=== PATIENT | female | born 1965 | race Caucasian/White ===

== ENCOUNTER 2017-03-23 11:19 | Emergency (ER) | payer MEDICAID ==
[~2017-03-23] VITALS: Ht 170.2 cm; Wt 70.4 kg
[~2017-03-23 11:19] MED LIST: LAMO25TA5 PO; METO10TA82 PO; OXYC-223 PO
[2017-03-23 11:20] VITALS: BP 123/83
[2017-03-23] MEDS ORDERED: KETOROLAC 30 MG/1 ML IM ONE (12:00)
[2017-03-23] MEDS ORDERED: KETOROLAC 30 MG/1 ML ONE (12:07)
== END 2017-03-23 13:08 | disposition home or self-care (01) ==
LOC: ED 11:48
DX: M25.561 Pain in right knee (principal)
CPT/HCPCS: 29505; 73564; 96372; 99284; J1885

== ENCOUNTER 2019-09-18 04:36 | Emergency (ER) | payer MEDICAID ==
[~2019-09-18] VITALS: Ht 170.2 cm; Wt 72.8 kg
[~2019-09-18 04:36] MED LIST changes: -OXYC-223 PO; +OXYC-306 PO
[2019-09-18 04:38] VITALS: BP 151/85
--- NOTE | 2019-09-18 04:54 | NUR ---
PT CHANGED INTO GOWN AND IN [facility] [place]. [facility] AT FOR PT HISTORY AND ASSESSMENT. PT EDUCATED ON ER PROCESS AND POC AND VERBALIZES UNDERSTANDING. CALL LIGHT IS WITHIN REACH AT THIS TIME. AWAITING ORDERS FROM ERP.
--- NOTE | 2019-09-18 06:58 | NUR ---
Patient given discharge instructions and they have confirmed that they understand the instructions. Patient ambulatory with steady gait.
== END 2019-09-18 07:00 | disposition home or self-care (01) ==
LOC: ED 05:48
DX: M79.652 Pain in left thigh (principal)
CPT/HCPCS: 99284

== ENCOUNTER 2020-02-26 17:19 | Emergency (ER) | payer OTHER, MEDICAID ==
[~2020-02-26] VITALS: Ht 170.2 cm; Wt 71.3 kg
[2020-02-26 17:22] VITALS: BP 152/82
--- NOTE | 2020-02-26 17:36 | NUR ---
PT STATES Hx HEP C WITH INTERFERON THERAPY, WAS TOLD SHE DIDN'T HAVE IT ANYMORE. ALSO ADMITS TO DAY TRADER SUBSTANCE SBUSE INCLUDING VICODIN FOR THE PAST 4 WEEKS, SWITCHING TO METH FOR THE PAST 4 DAYS. PT TEARFUL AND HIGHLY ANXIOUS. SLIGHT JAUNDICE NOTED, DSTENSION TO ABDOMEN. PT DENIES ANY PAIN. CALL LIGHT IN REACH.
[2020-02-26 18:05] LABS: BASOPHILS # (AUTO) 0.02 x10^3/uL (0-0.1); BASOPHILS % (AUTO) 1 % (0-1); EOSINOPHILS # (AUTO) 0.05 x10^3/uL (0-0.4); EOSINOPHILS % (AUTO) 1 % (1-7); LYMPHOCYTES # (AUTO) 1.06 x10^3/uL (1-3.4); LYMPHOCYTES % (AUTO) 25 % (22-44); MD NO; MEAN CORPUSCULAR HGB CONC 34.3 g/dL (32.4-35.8); MEAN CORPUSCULAR VOLUME 87.4 fL (80-100); MEAN PLATELET VOLUME 8.5 fL (7.4-10.4); MONOCYTES # (AUTO) 0.34 x10^3/uL (0.2-0.8); MONOCYTES % (AUTO) 8 % (2-9); NEUTROPHILS # (AUTO) 2.85 x10^3/uL (1.8-6.8); NEUTROPHILS % (AUTO) 66 % (42-75); PLATELET COUNT 253 x10^3/uL (130-400); RED BLOOD COUNT 4.17 x10^6/uL (3.82-5.3); RED CELL DISTRIBUTION WIDTH 13.1 % (9.6-15.2)
[2020-02-26 18:17] LABS: ANION GAP 11 mmol/L (5-15); CALCIUM 9.1 mg/dL (8.5-10.1); CHLORIDE 99 mmol/L (98-107); CREATININE 0.94 mg/dL (0.55-1.02)
[2020-02-26 18:18] LABS: ALANINE AMINOTRANSFERASE 34 U/L (12-78); ALBUMIN 4.1 g/dL (3.4-5.0)
[2020-02-26 18:20] LABS: ALKALINE PHOSPHATASE 82 U/L (45-117); BILIRUBIN,TOTAL 0.7 mg/dL (0.2-1.0); TOTAL PROTEIN 7.7 g/dL (6.4-8.2)
== END 2020-02-26 19:26 | disposition home or self-care (01) ==
LOC: ED 18:45
DX: F41.1 Generalized anxiety disorder (principal); F15.10 Other stimulant abuse, uncomplicated
CPT/HCPCS: 36415; 80053; 83690; 85025; 99283

== ENCOUNTER 2020-08-16 19:09 | Emergency (ER) | payer MEDICAID ==
[~2020-08-16] VITALS: Ht 170.2 cm; Wt 76.5 kg
[2020-08-16 19:12] VITALS: BP 106/83
[2020-08-16] MEDS ORDERED: LORazepam 1MG TABLET PO ONE (19:30)
[2020-08-16 19:43] LABS: ALANINE AMINOTRANSFERASE 53 U/L (12-78); ALBUMIN 3.9 g/dL (3.4-5.0); ANION GAP 7 mmol/L (5-15); CALCIUM 8.7 mg/dL (8.5-10.1); CHLORIDE 103 mmol/L (98-107); CREATININE 0.87 mg/dL (0.55-1.02)
[2020-08-16 19:45] LABS: ALKALINE PHOSPHATASE 95 U/L (45-117); BILIRUBIN,TOTAL 0.9 mg/dL (0.2-1.0); TOTAL PROTEIN 7.4 g/dL (6.4-8.2)
[2020-08-16 19:59] LABS: BASOPHILS % (AUTO) 0 % (0-1); EOSINOPHILS % (AUTO) 1 % (1-7); LYMPHOCYTES % (AUTO) 10 % (22-44); MEAN CORPUSCULAR HEMOGLOBIN 29.8 pg (27.0-34.8); MEAN CORPUSCULAR HGB CONC 34.2 g/dL (32.4-35.8); MEAN PLATELET VOLUME 7.9 fL (7.4-10.4); MONOCYTES % (AUTO) 7 % (2-9); NEUTROPHILS % (AUTO) 82 % (42-75); PLATELET COUNT 219 x10^3/uL (130-400); RED BLOOD COUNT 4.14 x10^6/uL (3.82-5.3); RED CELL DISTRIBUTION WIDTH 13.3 % (9.6-15.2)
[2020-08-16 20:04] LABS: MD NO
--- NOTE | 2020-08-16 20:05 | NUR ---
pt to room from lobby
[2020-08-16] MEDS ORDERED: LORazepam 1MG TABLET ONE (20:10)
[2020-08-16 20:35] LABS: MICROSCOPIC NOT IND
== END 2020-08-16 21:15 | disposition home or self-care (01) ==
LOC: ED 20:10
DX: F41.1 Generalized anxiety disorder (principal); F15.10 Other stimulant abuse, uncomplicated; M79.10 Myalgia, unspecified site; F17.210 Nicotine dependence, cigarettes, uncomplicated
CPT/HCPCS: 36415; 80053; 81003; 85025; 99283